=== PATIENT | female | born 1960 | race Caucasian/White ===

== ENCOUNTER 2020-01-06 03:32 | Inpatient (IN) ==
[2020-01-06] MEDS ORDERED: DUONEB (A & A) INH ONE (03:35)
[2020-01-06] MEDS ORDERED: SOLU-MEDROL IV ONE (03:36)
[2020-01-06] MEDS ORDERED: MAGNESIUM SULFATE 1 GM/D5W 1 GM/100 ML IVPB IV ONE (03:38)
--- NOTE | 2020-01-06 03:42 | PROVIDER DOCUMENTATION ---
HPI-Respiratory General - General Chief Complaint: Shortness of Breath Stated Complaint: COPD Time Seen by Provider: 01/06/20 03:35 Source: patient Allergies/Adverse Reactions: Patient Allergies Allergy/AdvReac Type Severity Reaction Status Date / Time No Known Allergies Allergy Verified 01/06/20 03:40 Home Medications: Home Medication List Medication Instructions Recorded Confirmed Last Taken Type Metoprolol/Hydrochlorothiazide 1 each PO BID 08/27/18 01/06/20 Unknown History [Metoprolol-Hctz 50-25 mg Tab] Albuterol [Albuterol Neb] 1 puff ORDERED DIRECTED 01/06/20 01/06/20 Unknown History Gabapentin 400 mg PO TID 01/06/20 01/06/20 Unknown History Levothyroxine [Synthroid] 25 mg PO DAILY 01/06/20 01/06/20 Unknown History Tiotropium [place] [Spiriva 1 puff PO DIRECTED 01/06/20 01/06/20 Unknown History Respimat] - History of Present Illness-Resp Nature of Presenting Problem: Patient is a 59 year old white female with history of severe COPD requiring home oxygen, tobacco abuse (currently smokes 1/4ppd), and HTN who presents by [facility] with worsening SOB and wheezing. EMS reports initial O2 sat of 93% on 2L/NC with wheezing. No treatment given by EMS. Patient denies chest pain, productive cough, fever. Patient states that shortness of breath has worsened over past 3 weeks. Patient smoked a cigarette just prior to arrival. Review of Systems - Adult - REVIEW OF SYSTEMS - ADULT Constitutional: denies: chills, fever Eyes: reports: no symptoms reported Ears, Nose, Mouth & Throat: reports: no symptoms reported Cardiovascular: denies: edema Respiratory: reports: see HPI, shortness of breath, wheezing Gastrointestinal: denies: abdominal pain, nausea, vomiting Genitourinary: reports: no symptoms reported Musculoskeletal: reports: no symptoms reported Integumentary: reports: no symptoms reported Neurological: reports: no symptoms reported Psychiatric: reports: anxiety Endocrine: reports: no symptoms reported Hematologic/Lymphatic: reports: no symptoms reported Allergic/Immunologic: reports: no symptoms reported All Other Systems: Reviewed and Negative Past History - Adult - PAST MEDICAL HISTORY-ADULT Review of Records: reports: Old Records Reviewed, Nursing Assessment Review, Medications Reviewed, Social history reviewed & non-contributory. Major Childhood Illnesses: reports: denies history Cardiovascular: reports: HTN Respiratory: reports: COPD Gastrointestinal: reports: denies history Obstetrical/Gynecological: reports: denies history Genitourinary: reports: denies history Musculoskeletal: reports: denies history Neurological: reports: denies history Endocrine/Immune: reports: denies history Other Conditions: reports: denies history - PRIOR SURGERIES/PROCEDURES Surgical/Procedure History: reports: cholecystectomy - IMMUNIZATION STATUS Childhood Immunizations: See Nurse Assessment Flu Vaccine: See Nurse Assessment - FAMILY HISTORY Family History: reviewed, not pertinent - SOCIAL HISTORY Smoking: less than 1 pack/day Substance Use: denies Alcohol Use Frequency: occasionally Living Situation: family Physical Exam-General - PHYSICAL EXAM-ADULT Initial Vital Signs Reviewed: Yes - CONSTITUTIONAL General Appearance: alert, moderate distress - EYES Eyes: other (clear) - HEAD, EARS, NOSE, MOUTH & THROAT HENMT: normocephalic/atraumatic, moist mucous membranes - NECK Neck: full range of motion, supple - RESPIRATORY Respiratory: no accessory muscle use, decreased breath sounds, wheezing - CARDIOVASCULAR Cardiovascular: tachycardia - GASTROINTESTINAL (ABDOMEN) Abdominal Exam: non tender, soft - LYMPHATIC Lymphatic: no adenopathy - MUSCULOSKELETAL Back Exam: no CVA tenderness Extremity: normal range of motion, non-tender Peripheral Pulses: radial (R): 2+, radial (L): 2+ - SKIN Integumentary: normal turgor, warm/dry - NEUROLOGIC Neurologic: grossly normal - PSYCHIATRIC Psych/Mental Status: anxious Progress - PLAN OF CARE/RESULTS Progress/Plan/Lab Results: Vital Signs - 8 hr 01/06/20 03:32 01/06/20 03:40 01/06/20 04:10 Temperature 98 F Pulse Rate 101 H 101 H Respiratory Rate 28 H 24 Blood Pressure 165/113 O2 Sat by Pulse Oximetry 99 90 L 95 Laboratory Results - last 24 hr 01/06/20 01/06/20 01/06/20 03:35 03:35 03:35 WBC 16.60 H RBC 5.00 Hgb 15.2 Hct 48.3 H MCV 96.6 MCH 30.4 MCHC 31.5 L RDW Std Deviation 12.3 Plt Count 277 MPV 9.8 Immature Gran % (Auto) 0.2 Neut % (Auto) 82.6 H Lymph % (Auto) 8.5 L [place] % (Auto) 8.0 Eos % (Auto) 0.5 Baso % (Auto) 0.2 Immature Gran # (Auto) 0.04 Neut # (Auto) 13.72 H Lymph # (Auto) 1.41 [place] # (Auto) 1.32 H Eos # (Auto) 0.08 Baso # (Auto) 0.03 Specimen Type Sample Site pH pCO2 pO2 HCO3 Base Excess Oxyhemoglobin ABG O2 Sat (Calculated) ABG O2 Saturation ABG Carboxyhemoglobin ABG Methemoglobin Oli Test A-a O2 Difference Total Hemoglobin Lactate Liter Flow Blood Gas Modality FiO2 % Sodium Potassium Chloride Carbon Dioxide Anion Gap BUN Creatinine Estimated GFR/1.73 m2 BUN/Creatinine Ratio Glucose Calculated Osmolality Calcium Total Bilirubin AST ALT Alkaline Phosphatase Troponin T High Sens 26 H Tbb-C-Cgssiryeuwl Pept 338 H Total Protein Albumin Globulin Albumin/Globulin Ratio Plasma Lactate 01/06/20 01/06/20 01/06/20 03:35 03:35 03:48 WBC RBC Hgb Hct MCV MCH MCHC RDW Std Deviation Plt Count MPV Immature Gran % (Auto) Neut % (Auto) Lymph % (Auto) [place] % (Auto) Eos % (Auto) Baso % (Auto) Immature Gran # (Auto) Neut # (Auto) Lymph # (Auto) [place] # (Auto) Eos # (Auto) Baso # (Auto) Specimen Type ARTERIAL Sample Site L BRACHIAL pH 7.28 L pCO2 97 H* pO2 56 L HCO3 34.8 H Base Excess 13.2 H Oxyhemoglobin 86.0 L* ABG O2 Sat (Calculated) 19.5 ABG O2 Saturation 90.1 L ABG Carboxyhemoglobin 3.70 H ABG Methemoglobin 0.9 Oli Test NO A-a O2 Difference 51.0 Total Hemoglobin 16.2 Lactate 0.80 Liter Flow 3.0 Blood Gas Modality [place] FiO2 % 32.0 Sodium 140 Potassium 3.1 L Chloride 89 L Carbon Dioxide 36 H Anion Gap 15 BUN 15 Creatinine 0.7 Estimated GFR/1.73 m2 > 60 BUN/Creatinine Ratio 21 Glucose 116 H Calculated Osmolality 281 Calcium 9.7 Total Bilirubin 1.50 H AST 19 ALT 21 Alkaline Phosphatase 54 Troponin T High Sens Rzo-W-Hshavuwnzsp Pept Total Protein 7.4 Albumin 4.5 Globulin 3.0 Albumin/Globulin Ratio 2.0 Plasma Lactate 0.8 Orders Category Date Time Status Admit - [facility] Routine AdmDCTranf 01/06/20 04:31 Active Activity - Strict Bedrest ORDERED Care 01/06/20 04:30 Active Cardiac Monitoring DIRECTED Care 01/06/20 03:38 Active Core Temperature ORDERED Care 01/06/20 03:43 Active NEWS Score >or=5:Order NEWS Bundle S.O. NOW Care 01/06/20 03:39 Active Neurological Check Q4H Care 01/06/20 04:32 Active Resuscitation Status Routine Care 01/06/20 04:30 Ordered Vital Signs Order Q 4-HR ASSESS Care 01/06/20 04:30 Active Z-Document. for Tele Applied ORDERED Care 01/06/20 04:32 Active Heart Healthy Diet Diet 01/06/20 04:32 Active CHEST-1 VIEW [RAD] Stat Exams 01/06/20 03:44 Taken ABG [RESP] Routine Lab 01/06/20 03:48 Completed BLOOD CULTURE [BLDCUL] Stat Lab 01/06/20 03:43 Ordered CBC WITH ELECTRONIC DIFF [HEME] Stat Lab 01/06/20 03:35 Completed CMP [COMPREHENSIVE METABOLIC PANEL] [CHEM] Stat Lab 01/06/20 03:35 Completed LACTATE, PLASMA [CHEM] Lab 01/06/20 07:00 Uncollected LACTATE, PLASMA [CHEM] Lab 01/06/20 10:00 Uncollected LACTATE, PLASMA [CHEM] Q3H Lab 01/06/20 03:35 Completed TROPONIN T HIGH SENSITIVITY Stat Lab 01/06/20 03:35 Completed bnp [PRO B-NATRIURETIC PEPTIDE] Stat Lab 01/06/20 03:35 Completed Albuterol 2.5MG/Ipratrop 0.5MG [Duoneb (A & A)] Med 01/06/20 03:35 Discontinued 3 ml INH NOW ONE Albuterol 2.5MG/Ipratrop 0.5MG [Duoneb (A & A)] Med 01/06/20 07:30 Active 3 ml INH RTQ4H CefTRIAXONE [Rocephin] 1 gm Med 01/06/20 04:08 Discontinued 0.9% Sodium Chloride Inj [Ns] 50 ml IV NOW Magnesium Sulfate 1 gm/D5w Med 01/06/20 03:38 Discontinued 1 gm in 100 ml IV NOW Methylprednisolone Sod Succ [Solu-Medrol] Med 01/06/20 08:00 Active 125 mg IV Q6HR Methylprednisolone Sod Succ [Solu-Medrol] Med 01/06/20 03:36 Discontinued 125 mg IV STAT ONE Aerosol Treatments Routine Oth 01/06/20 03:35 Active Aerosol Treatments Routine Oth 01/06/20 04:32 Active Aerosol Treatments Stat Oth 01/06/20 03:35 Active Aerosol Treatments Stat Oth 01/06/20 04:32 Active BIPAP Stat Oth 01/06/20 04:06 Active Oxygen Device Stat Oth 01/06/20 03:36 Active Telemetry [OM.EQ] Routine Oth 01/06/20 04:30 Active EKG [EKG] Stat Ther 01/06/20 03:37 Ordered Transfer/Admit Order [TRANSFER] Routine Transfer 01/06/20 04:33 Ordered Result Diagrams: 01/06/20 03:35 01/06/20 03:35 - REASSESSMENT Reassessment #1 Time Reassessed: 04:37 Status: improving Reassessment Comment: currenty on BIPAP - CONSULTS/PCP/HOSPITALIST Notification #1 *Consult/PCP/Hospitalist*: Dr. Bryan, hospitalist at [facility] Time Discussed: 04:25 Reason/Comments: admit to PVC Consult Disposition: Admit Departure - Departure Date of Disposition Decision: 01/06/20 Time of Disposition Decision: 04:38 DIAGNOSIS: COPD exacerbation, Hypercarbia Hypertension Qualifiers: Hypertension type: unspecified Qualified Code(s): I10 - Essential (primary) hypertension Leukocytosis Qualifiers: Leukocytosis type: unspecified Qualified Code(s): D72.829 - Elevated white blood cell count, unspecified Disposition: ADMITTED INPATIENT 09 Certified Medical Emergency: Emergent Condition: Serious Referrals and Follow-Ups: Iesha Musa MD [Primary Care Provider] - - Critical Care Note This patient required my direct & personal management of CC.: Yes Attestation - Physician/ ALTAGRACIA Attestation Patient care was provided by Advanced Practice Provider:: No The physician spent face to face time with patient:: Yes Advanced Practice Provider documentation review:: Supervising physician onsite and consulted in the evaluation and care of this patient. The physician did have a face to face encounter with the patient.
[2020-01-06 03:55] LABS: BASO# 0.03 X1000 (0.0-0.2); BASO% 0.2 % (0.0-0.8); EOS# 0.08 X1000 (0.0-0.7); EOS% 0.5 % (0.0-10.0); HEMATOCRIT 48.3 % (37.0-47.0); HEMOGLOBIN 15.2 g/dL (12.0-16.0); IMM GRAN# 0.04 X1000 (0.0-0.04); IMM GRAN% 0.2 % (0.0-0.5); LYMPH# 1.41 X1000 (1.2-3.4); LYMPH% 8.5 % (20.5-51.1); MCH 30.4 PG (27-31); MCHC 31.5 g/dL (33-37); MCV 96.6 FL (81-99); MONO# 1.32 X1000 (0.11-0.59); MPV 9.8 FL (7.4-10.4); NEUT# 13.72 X1000 (1.4-6.5); NEUT% 82.6 % (42.2-75.2); PLT 277 X1000 (130-400); RDW 12.3 % (11.5-14.5)
[2020-01-06 04:02] LABS: BE 13.2 mmoll (-3.0-3.0); BLOOD TYPE ARTERIAL; HCO3-(ACT) 34.8 mmoll (20.0-26.0); METHB 0.9 % (0.0-1.5); O2(CT) 19.5 mL/dL (15.0-23.0); PO2(98.6) 56 mmHg (60-100); SAMPLE BLOOD; SAO2 90.1 % (95.0-100.0); THB 16.2 g/dL (11.5-17.4); pH(98.6) 7.28 (7.35-7.45)
[2020-01-06 04:05] LABS: ALLEN TEST NO; MODALITY CANNULA; PCO2(98.6) 97 mmHg (35-45)
[2020-01-06] MEDS ORDERED: ROCEPHIN 1 GM in NS 50 ML IV ONE (04:08)
[2020-01-06 04:10] LABS: ESTIMATED GFR > 60
[2020-01-06 04:15] LABS: AGAP 15; ALBUMIN 4.5 g/dL (3.5-5.0); ALKALINE PHOSPHATASE 54 U/L (32-104); BUN 15 mg/dL (8-22); CALCIUM 9.7 mg/dL (8.8-10.2); CHLORIDE 89 mmol/L (98-107); COSMO 281; CREATININE 0.7 mg/dL (0.5-0.9); GLUCOSE 116 mg/dL (70-104); GOT 19 U/L (10-30); GPT 21 U/L (10-36); POTASSIUM 3.1 mmol/L (3.5-5.1); SODIUM 140 mmol/L (136-145); TCO2 36 mmol/L (25-35); TOTAL PROTEIN 7.4 g/dL (6.3-8.3)
--- NOTE | 2020-01-06 04:45 | EKG Report ---
Test Performed on : 01/06/2020 02:41:00 AM Test Reason : pain Blood Pressure : / mmHG Vent. Rate : 107 BPM Atrial Rate : 107 BPM P-R Int : 160 ms QRS Dur : 084 ms QT Int : 364 ms P-R-T Axes : 086 088 047 degrees QTc Int : 485 ms Sinus tachycardia. with fusion complexes Biatrial enlargement T wave abnormality, consider inferior ischemia Abnormal ECG When compared with ECG of 09-MAY-2017 10:11, fusion complexes are now present T wave inversion now evident in Inferior leads Nonspecific T wave abnormality now evident in Anterior leads T wave inversion no longer evident in Lateral leads QT has lengthened Unconfirmed Result
[2020-01-06 05:29] LABS: BLOOD TYPE ARTERIAL; SAMPLE BLOOD
[2020-01-06 05:34] LABS: PO2(98.6) 64 mmHg (60-100); pH(98.6) 7.33 (7.35-7.45)
[2020-01-06 05:35] LABS: BE 13.6 mmoll (-3.0-3.0); HCO3-(ACT) 35.3 mmoll (20.0-26.0); METHB 0.8 % (0.0-1.5); SAO2 94.4 % (95.0-100.0); THB 15.5 g/dL (11.5-17.4)
[2020-01-06 05:36] LABS: ALLEN TEST NO; MODALITY BI PAP; O2(CT) 19.6 mL/dL (15.0-23.0); PCO2(98.6) 84 mmHg (35-45)
[2020-01-06 05:37] LABS: O2HB 89.9 % (95.0-99.0)
[2020-01-06] MEDS ORDERED: DUONEB (A & A) INH PRN (06:10)
[2020-01-06] MEDS: LEVAQUIN 750 MG/D5W 750 MG/150 ML IVPB IV SCH (06:25)
--- NOTE | 2020-01-06 07:09 | Diag Imaging Result Doc PS360 ---
EXAM: CHEST-1 VIEW 01/06/2020 HISTORY: sob TECHNIQUE: AP portable at 0307 COMMENT: There is minimally increased opacity in the area of the lingula compared to 08/27/2018. Otherwise the appearance of the chest has not changed significantly. IMPRESSION: Questionable lingular pneumonia. Electronically signed by Corey Sosa 01/06/2020 7:07 AM
[2020-01-06] MEDS ORDERED: DUONEB (A & A) ONE ×2 (07:13)
[2020-01-06] MEDS: DUONEB (A & A) INH SCH ×5 (07:23→23:25)
[2020-01-06] MEDS ORDERED: SOLU-MEDROL ONE ×2 (07:30)
[2020-01-06] MEDS ORDERED: SOLU-MEDROL IV SCH (08:00)
[2020-01-06] MEDS ORDERED: ZOFRAN IV PRN (09:23)
[2020-01-06] MEDS ORDERED: NICODERM PATCH ONE ×2 (09:38)
[2020-01-06] MEDS ORDERED: NS 1,000 ML ONE ×2 (09:38)
[2020-01-06] MEDS: NS 1,000 ML IV SCH ×2 (09:47→23:00)
[2020-01-06] MEDS: NICODERM PATCH TD SCH (09:48)
[2020-01-06] MEDS: SYNTHROID PO SCH (11:42)
[2020-01-06] MEDS ORDERED: KLOR-CON PO ONE (11:46)
--- NOTE | 2020-01-06 12:06 | HISTORY AND PHYSICAL ---
CHIEF COMPLAINT: Shortness of breath. HISTORY OF PRESENT ILLNESS: This is a 59-year-old female with a history of COPD, tobacco abuse, and hypertension. She presented to the emergency room via EMS after being called for shortness of breath. The patient stated that she has had increasing symptoms over the last 3 to 4 weeks. The last week, she has sat upright tried to breathe. This is despite using her home albuterol nebulizers, Spiriva, and during this time, she has continued to smoke about a pack a day. She denied any fevers or chills, a productive cough. She did state that she smoked a cigarette as she was awaiting EMS arrival at her house. PAST MEDICAL HISTORY: 1. Chronic obstructive pulmonary disease. 2. Continued tobacco use. 3. Hypertension. 4. Hypothyroid. PAST SURGICAL HISTORY: Cholecystectomy. SOCIAL HISTORY: She lives with her . She denies illicit drug use or alcohol use. She does smoke a pack a day. ALLERGIES: No known drug allergies. HOME MEDICATIONS: 1. Albuterol nebulizers as directed. 2. Levothyroxine 25 mcg p.o. daily. 3. Metoprolol/hydrochlorothiazide 50/25 p.o. b.i.d. 4. Levothyroxine 25 mcg p.o. daily. 5. Gabapentin 400 mg p.o. t.i.d. 6. Spiriva 1 puff as directed. REVIEW OF SYSTEMS: Discussed with the patient with pertinent positives stated in the HPI. She denied any syncope, dizziness, chest pain, palpitations, a productive cough, any fevers or chills, any night sweats, recent weight loss or weight gain, any nausea, vomiting, diarrhea, constipation, black or bloody vomitus or stools, hematuria, dysuria, frequency, urgency. PHYSICAL EXAMINATION: GENERAL: This is a 59-year-old female who is sitting up on the stretcher in the emergency room with BiPAP in use. VITAL SIGNS: Blood pressure is 139/96, with a heart rate of 98, respirations are 20 to 23, temperature is 97.9 degrees, with O2 saturations that are 94 to 97 percent on BiPAP with FiO2 of 30%, 15/6. EYES: Pupils are equal, round, react to light. EOMs are intact. Sclerae are anicteric. HENT: Head is normocephalic, atraumatic. Mucous membranes are moist. NECK: Supple, with trachea midline. No JVD. CARDIOVASCULAR: Regular rate and rhythm. She is tachycardic. S1 and S2 are appreciated. No murmur. Calves are nontender. Bilateral peripheral pulses are palpable x4 extremities. PULMONARY: Breath sounds are diminished throughout. She does have some crackles in the posterior base of her right lung with expiratory wheezes scattered throughout. Chest rises and falls symmetrically with respiration. GASTROINTESTINAL: Abdomen is soft, nontender, nondistended, with bowel sounds in all 4 quadrants. NEUROLOGIC: She is alert and oriented x3. SKIN: Warm and dry. LABS: WBC is 16, with hemoglobin of 15.2, hematocrit 48.3, platelets 277,000. Sodium 140, potassium 3.1, BUN 15, creatinine 0.7, with a glucose of 116. ABGs, pH is 7.33, with a pCO2 of 84, a PO2 of 64, and bicarb of 35.3. This is on BiPAP 30 with 15/6. Chest x- ray revealed questionable lingular pneumonia. ASSESSMENT AND PLAN: 1. Lingular pneumonia. 2. Chronic obstructive pulmonary disease acute exacerbation. 3. Acute hypercarbic, hypoxemic respiratory failure. 4. Leukocytosis. 5. Hypokalemia. 6. Hypothyroid. 7. Hypertension. PLAN: transfer to [facility] ICU. telemetry. supplemental oxygen per BiPAP with bronchodilators, steroids. Antibiotic coverage of Levaquin. Gentle hydration. continue levothyroxine. I did discuss smoking cessation with the patient as well as her . Nicotine patch has been ordered. supplement potassium and trend labs daily. Replete as appropriate. For DVT prophylaxis, Lovenox, and GI prophylaxis, Prilosec. The patient was examined. The plan was discussed with Dr. Barbosa. Further treatments pending hospital course. Dictated by MARIPOSA Mccord for Edgardo Barbosa MD cc: MARIPOSA Mccord MD [facility]
[2020-01-06] MEDS: NEURONTIN PO SCH ×2 (13:02→20:01)
[2020-01-06] MEDS: SOLU-MEDROL IV SCH ×2 (13:02→19:37)
[2020-01-06 14:20] LABS: URINE SOURCE CATH
[2020-01-06 14:23] LABS: BILIRUBIN URINE NEGATIVE (NEGATIVE); BLOOD URINE MODERATE (NEGATIVE); COLOR YELLOW; GLUCOSE URINE NEGATIVE (NEGATIVE); KETONE URINE 20 mg/dL (NEGATIVE); LEUKOCYTES URINE NEGATIVE (NEGATIVE); NITRITE URINE NEGATIVE (NEGATIVE); PROTEIN URINE 50 mg/dL (NEGATIVE); SP GRAVITY URINE 1.026; TURBIDITY URINE CLEAR (CLEAR); UROBILINOGEN URINE NORMAL (NORMAL)
[2020-01-06 14:27] LABS: UR EPITHELIAL CELLS <10 /HPF (<10); URINE BACTERIA NEGATIVE /HPF; URINE RBC 20-40 /HPF (<10); URINE WBC <10 /HPF (<10)
--- NOTE | 2020-01-06 15:01 | PULMONOLOGY CONSULTATION ---
DATE: 01/06/2020 REQUESTING PROVIDER: Dr. Paco Bryan. REASON FOR CONSULTATION: Acute hypercapnic respiratory failure. HISTORY OF PRESENT ILLNESS: This is a 59-year-old, female with a medical history of COPD, on home oxygen, ongoing tobacco use, hypertension, and hypothyroidism, who presented to the ER early this morning with worsening shortness of breath and wheezing for 3 weeks. Initial workup in the ER revealed significant hypercarbia with mild metabolic alkalosis. She was put on BiPAP soon after she arrived to the ER. Followup ABG shows some improvement with pCO2 decreased from 97 to 84. The patient also has leukocytosis. Chest x-ray showed questionable lingular pneumonia, so she was on Levaquin and IV Solu-Medrol. The patient currently is lying in bed with no acute distress noted. She is still on BiPAP with FiO2 of 30% and pressure of 15/6. She is awake and alert. She states she is feeling a little bit better. She reports orthopnea, insomnia, interrupted sleep, witnessed snoring, shortness of breath, and wheezing, but denies fever, chill, significant cough, chest pain, palpitation, bowel habit change, urination discomfort, pedal edema, paroxysmal nocturnal dyspnea, recent weight change. PAST MEDICAL HISTORY: 1. COPD, on home oxygen, mainly used oxygen at night for over 10 years. 2. Ongoing tobacco use. Per H and P, the patient apparently smoked a cigarette as she was awaiting EMS arrival at her house. 3. Hypertension. 4. Hypothyroidism. PAST SURGICAL HISTORY: Cholecystectomy. SOCIAL HISTORY: The patient lives at home with her family. She has been smoking 1 pack per day since the age of 16. Her father is a heavy smoker and used to smoke around the house. She has history of heavy drinking, and quit many years ago. She has a history of marijuana use, and quit many years ago. She denies any history of illicit drug use. FAMILY HISTORY: Father had COPD. Mother had lung cancer. Grandparents had heart disease, diabetes, and cancer. ALLERGIES: No known drug allergies. REVIEW OF SYSTEMS: A 10-point review of systems was conducted, and the pertinent is listed within the HPI, otherwise noncontributory. PHYSICAL EXAMINATION: Vital Signs: Temperature 97.9, blood pressure 130/88, pulse 87, respiratory rate 26, oxygen saturation 97% on the BiPAP at 30%, 15/6. General: Chronically ill- appearing. Lying in bed with BiPAP mask on. No acute distress noted. HEENT: Atraumatic, normocephalic. Pupils equal, round, reactive to light. Mucosa is not elevated as the patient is wearing a BiPAP mask, but the patient reported dryness at this time. Respiratory: Mild tachypnea. No increased work of breathing noted. Auscultation revealed diminished breathing sounds globally with some inspiratory crackles and prolonged expiratory phase. No wheezing noted at this time. Cardiovascular: Regular rate and rhythm with S1 and S2 appreciated. Gastrointestinal: Soft, nontender, nondistended. Normoactive bowel sounds in all 4 quadrants. Extremities: No pedal edema. No cyanosis. No clubbing. Dorsalis pedis 2+ bilaterally. Neurologic: Alert and oriented x3. Speech fluent. Follows commands. LABORATORY DATA: White blood cells 16.60, hemoglobin 15.2, hematocrit 48.3, platelet 277,000. Sodium 140, potassium 3.1, chloride 89, carbon dioxide 36, BUN 15, creatinine 0.7, glucose 116. ProBNP 338. ABG: PH 7.33, pCO2 of 84, PO2 of 64, HC03 of 35.3, base excess 13.6, oxyhemoglobin 89.9 on the BiPAP at FiO2 of 30% and pressure 15/6. IMAGING DATA: See HPI. ASSESSMENT: This is a 59-year-old, female with a medical history of chronic obstructive pulmonary disease, on home oxygen, ongoing tobacco use, hypertension, and hypothyroidism. She has been admitted to [facility] this morning with lingular pneumonia, chronic obstructive pulmonary disease exacerbation, and hypercarbia. 1. Acute on chronic hypoxemic respiratory failure. 2. Acute hypercapnic respiratory failure. 3. COPD exacerbation. 4. Possible lingular pneumonia. 5. Ongoing tobacco use. PLAN: 1. Continue BiPAP at this time. We will follow up ABG tomorrow morning. Once the patient's pCO2 gets out of the critical range, we will switch the patient to BiPAP at bedtime and as needed. 2. Continue supplemental oxygen. 3. Antibiotics. Levaquin has been ordered. 4. IV Solu-Medrol 60 mg every 6 hours scheduled has been ordered. 5. GI prophylaxis with Prilosec, and DVT prophylaxis with Lovenox initiated. 6. Follow up ABG, CBC, BMP, and chest x-ray tomorrow morning. 7. Smoking cessation education provided. The patient stated she will quit smoking after discharge. 8. Recommend outpatient sleep study after discharge. 9. Further recommendations pending hospital course. Thank you for the courtesy of this consult. Total evaluation time in minutes: 34. Dictated by MARIPOSA Garcia for Luci Burk MD cc: MARIPOSA Garcia MD [facility]
--- NOTE | 2020-01-06 20:48 | HISTORY AND PHYSICAL ---
ADDENDUM: Patient presented to the hospital with increased cough, congestion, increased work of breathing. Diagnosed with a COPD exacerbation and hypercapnic respiratory failure. She was placed on BiPAP. We will continue her on such, transfer her to [facility]. She did have a low potassium which was replaced and leukocytosis. We will follow. cc: Edgardo Barbosa MD
[2020-01-07] MEDS: SOLU-MEDROL IV SCH ×3 (03:00→20:32)
[2020-01-07] MEDS: DUONEB (A & A) INH SCH ×6 (03:28→22:58)
[2020-01-07 04:28] LABS: ALLEN TEST YES; BE 13.7 mmoll (-3.0-3.0); BLOOD TYPE ARTERIAL; HCO3-(ACT) 35.4 mmoll (20.0-26.0); METHB 0.6 % (0.0-1.5); O2(CT) 16.2 mL/dL (15.0-23.0); PO2(98.6) 52 mmHg (60-100); SAMPLE BLOOD; SAO2 91.5 % (95.0-100.0); THB 12.9 g/dL (11.5-17.4); pH(98.6) 7.39 (7.35-7.45)
[2020-01-07 04:29] LABS: MODALITY BI PAP
[2020-01-07 04:30] LABS: O2HB 89.3 % (95.0-99.0); PCO2(98.6) 69 mmHg (35-45)
[2020-01-07 04:58] LABS: HEMATOCRIT 39.7 % (37.0-47.0); HEMOGLOBIN 12.7 g/dL (12.0-16.0); MCH 30.8 PG (27-31); MCV 96.1 FL (81-99); MPV 10.5 FL (7.4-10.4); RBC 4.13 XMIL (4.2-5.4); RDW 12.1 % (11.5-14.5); WBC 9.7 X1000 (4.8-10.8)
[2020-01-07 05:20] LABS: AGAP 10; BUN 19 mg/dL (8-22); CALCIUM 9.2 mg/dL (8.8-10.2); CHLORIDE 98 mmol/L (98-107); COSMO 291; CREATININE 0.7 mg/dL (0.5-0.9); ESTIMATED GFR > 60; GLUCOSE 138 mg/dL (70-104); POTASSIUM 3.7 mmol/L (3.5-5.1); SODIUM 144 mmol/L (136-145); TCO2 36 mmol/L (25-35)
--- NOTE | 2020-01-07 06:26 | PROGRESS NOTE ---
DATE: 01/07/2020 SUBJECTIVE: The patient reports breathing much better in comparing with admission. According to nursing staff, she has been requiring BiPAP at night. Currently, she is requiring 4 L of oxygen by nasal cannula. She is breathing okay. No fever or chills reported. OBJECTIVE: Vital Signs: Temperature 98 degrees, heart rate 72, respiratory rate 15, blood pressure 124/75 and O2 saturation 95% on BiPAP at FiO2 40%. General: This is a 59-year-old all female lying in bed in no acute distress. Cardiovascular: S1, S2 heard. No murmurs, gallops, or rubs. Regular rate and rhythm. Respiratory: Decreased breath sounds globally with some minimal wheezing noted in both pulmonary bases. The patient is not using any accessory muscles or having work of breathing. Abdomen: Soft. Non tender to palpation. Bowel sounds present. No organomegaly. Extremities: No clubbing, cyanosis, or edema. Peripheral pulses present in both legs. Neurological: Patient is alert and oriented x3. Moves all 4 extremities. LABORATORY DATA: White cell count 9.17, hemoglobin 12.7, hematocrit 39.7 degrees, and platelets 195,000 with ABG that shows pH 7.39, with pCO2 69, and PO2 52. BMP unremarkable. ASSESSMENT AND PLAN: 1. Acute hypercarbic and hypoxemic respiratory failure secondary to chronic obstructive pulmonary disease exacerbation. 2. Lingular pneumonia. 3. Hypertension. 4. Hypothyroidism. PLAN: Patient has been admitted to the hospital from [facility] because of severe COPD exacerbation with hypercapnia. CO2 levels today are definitely much better. At admission, pH was 7.28 with pCO2 97, and today the pH is normal at 7.39 with pCO2 of 69. Of course, the CO2 level is still high. We have consulted Pulmonary. We will continue monitoring this patient closely. The patient is on breathing treatments with DuoNeb every 4 hours as scheduled. For this lingular pneumonia, patient is receiving levofloxacin. We will continue with the same medications. Considering her long-standing history of smoking to rule out any malignancy, I prefer to go ahead and order a CT of the chest with contrast. We will see what it shows. For hypertension, blood pressure is under control. We will continue with same medications. For hypothyroidism home, we are going to check TSH. We will continue with same doses of Synthroid. DISPOSITION: At this point, we are going to keep this patient in intensive care unit considering her still high oxygen needs. cc: Harrison Boles MD [facility]
[2020-01-07] MEDS: SYNTHROID PO SCH (06:31)
[2020-01-07] MEDS: PRILOSEC PO SCH (06:31)
[2020-01-07] MEDS: LEVAQUIN 750 MG/D5W 750 MG/150 ML IVPB IV SCH (06:31)
--- NOTE | 2020-01-07 07:43 | Diag Imaging Result Doc PS360 ---
EXAM: CHEST-PORTABLE HISTORY: hypoxemic resp failure, pna, copd TECHNIQUE: Two views COMPARISON: 01/06/2020 FINDINGS: The lungs are hyperexpanded. The heart is not enlarged. The vessels are not distended. There are no infiltrates. No effusion identified. There is a right lower lobe granuloma. IMPRESSION: Emphysema Electronically signed by Bob Benson 01/07/2020 7:41 AM
[2020-01-07] MEDS: NEURONTIN PO SCH ×3 (08:03→20:33)
[2020-01-07] MEDS: LOVENOX SUBQ SCH (08:03)
[2020-01-07] MEDS: NICODERM PATCH TD SCH (08:03)
[2020-01-07] MEDS: TESSALON PO PRN ×2 (08:03→16:18)
[2020-01-07] MEDS: HYDROCHLOROTHIAZIDE PO SCH ×2 (09:23→20:32)
[2020-01-07] MEDS: NS 1,000 ML IV SCH ×2 (09:23→16:46)
[2020-01-07] MEDS: LOPRESSOR PO SCH ×2 (09:23→20:33)
--- NOTE | 2020-01-07 19:09 | PROVIDER PROGRESS NOTE ---
Progress Note Dr. Burk Progress Note/Pulmonary and or critical care Subjective: The patient is lying in bed on NC 6L with SaO2 95%. She states she is feeling a lot better. No family at the bedside. Input was appreciated from Dr. Mercado and other teams on the case. Objective: Vital Signs: T 97.8 (no fever in last 24 hours), [place] 113, RR 26, BP 171/123 and SaO2 92% on NC 6L. I/O: +1315 ml. Physical Examination: General: Lying in bed. No acute distress noted. HEENT: Normocephalic. Trachea midline. Mucosa pink and moist. PERRL. Chest: Mild tachypnea. No increased work of breathing or accessory muscle using noted. Symmetrical excursion. Good air entry with expiratory wheezing and prolonged expiratory phase bilaterally. CVS: S1 and S2 appreciated. Abdomen: Soft. Non-distended. Non-tender. Normoactive bowel sounds in all 4 quadrants. Extremities: No edema. No cyanosis. No clubbing. Neuro: A/O x3. Speech fluent. Follow commands. Labs and Radiology: Laboratory Results 01/07/20 01/07/20 01/07/20 04:00 04:35 04:35 WBC 9.70 RBC 4.13 L Hgb 12.7 D Hct 39.7 MCV 96.1 MCH 30.8 MCHC 32.0 L RDW Std Deviation 12.1 Plt Count 195 MPV 10.5 H Specimen Type ARTERIAL Sample Site R RADIAL pH 7.39 pCO2 69 H* pO2 52 L HCO3 35.4 H Base Excess 13.7 H Oxyhemoglobin 89.3 L* ABG O2 Sat (Calculated) 16.2 ABG O2 Saturation 91.5 L ABG Carboxyhemoglobin 1.80 ABG Methemoglobin 0.6 Oli Test YES A-a O2 Difference 76.0 Total Hemoglobin 12.9 Lactate 0.60 Blood Gas Modality BI PAP Vent Mode BIPAP FiO2 % 30.0 Inspiratory BiPAP 16.0 Expiratory BiPAP 8.0 Sodium 144 Potassium 3.7 D Chloride 98 Carbon Dioxide 36 H Anion Gap 10 BUN 19 Creatinine 0.7 Estimated GFR/1.73 m2 > 60 BUN/Creatinine Ratio 27 Glucose 138 H Calculated Osmolality 291 Calcium 9.2 Assessment: Acute on chronic hypoxemic respiratory failure. Acute, likely on chronic hypercapnic respiratory failure. Respiratory acidosis is chronic and compensated with metabolic alkalosis today. COPD exacerbation. Possible lingular pneumonia. CXR today shows emphysema. Ongoing tobacco use. Possible ALVERTO with insomnia, interrupted sleep and witnessed snoring. Plan: Supplemental oxygen as needed. BiPAP at bedtime and as needed. We titrated supplemental oxygen and BiPAP setting to patients needs per clinical protocols. We will keep monitoring patients response closely. Antibiotic Levaquin. Day 2. IV Solu-Medrol. Tapering down. GI and DVT prophylaxis. Smoking cessation education Recommend outpatient sleep study. Evaluation time in minutes: 32 minutes
[2020-01-07] MEDS: DESYREL PO SCH (20:33)
[2020-01-08] MEDS: NS 1,000 ML IV SCH (02:15)
[2020-01-08] MEDS: DUONEB (A & A) INH SCH ×6 (03:44→23:07)
[2020-01-08] MEDS: SOLU-MEDROL IV SCH ×3 (04:20→21:02)
[2020-01-08 04:33] LABS: ALLEN TEST YES; BE 17.7 mmoll (-3.0-3.0); BLOOD TYPE ARTERIAL; HCO3-(ACT) 38.6 mmoll (20.0-26.0); PO2(98.6) 66 mmHg (60-100); SAMPLE BLOOD; pH(98.6) 7.42 (7.35-7.45)
[2020-01-08 04:56] LABS: MODALITY BI PAP; PCO2(98.6) 71 mmHg (35-45)
[2020-01-08] MEDS: LEVAQUIN 750 MG/D5W 750 MG/150 ML IVPB IV SCH (05:21)
[2020-01-08] MEDS: PRILOSEC PO SCH (06:00)
[2020-01-08] MEDS: SYNTHROID PO SCH (06:00)
[2020-01-08 06:09] LABS: HEMATOCRIT 39.6 % (37.0-47.0); HEMOGLOBIN 12.1 g/dL (12.0-16.0); IMM GRAN# 0.02 X1000 (0.0-0.04); IMM GRAN% 0.2 % (0.0-0.5); LYMPH# 0.54 X1000 (1.2-3.4); LYMPH% 4.8 % (20.5-51.1); MCHC 30.6 g/dL (33-37); MONO# 0.49 X1000 (0.11-0.59); MONO% 4.3 % (1.7-9.3); MPV 10.5 FL (7.4-10.4); NEUT# 10.22 X1000 (1.4-6.5); NEUT% 90.7 % (42.2-75.2); PLT 209 X1000 (130-400); RBC 4.04 XMIL (4.2-5.4); RDW 12.1 % (11.5-14.5); WBC 11.27 X1000 (4.8-10.8)
[2020-01-08 06:33] LABS: AGAP 10; BUN 20 mg/dL (8-22); CALCIUM 8.9 mg/dL (8.8-10.2); CHLORIDE 99 mmol/L (98-107); COSMO 296; CREATININE 0.6 mg/dL (0.5-0.9); ESTIMATED GFR > 60; GLUCOSE 119 mg/dL (70-104); POTASSIUM 3.9 mmol/L (3.5-5.1); SODIUM 147 mmol/L (136-145); TCO2 38 mmol/L (25-35)
[2020-01-08] MEDS: TESSALON PO PRN ×3 (06:49→21:05)
[2020-01-08 07:31] LABS: EOS 2 % (1-10); LYMPHS 12 % (21-51); MONO 2 % (1-9); SEGS 82 % (42-75)
--- NOTE | 2020-01-08 08:21 | PROGRESS NOTE ---
DATE: 01/08/2020 SUBJECTIVE: Patient reports breathing better. Upon my examination, she still looks tachypneic. No other issues noted as per nursing staff overnight. Blood pressure has been a little bit elevated in the range of 160s and diastolic in the range of 110s and 111. OBJECTIVE: Vital Signs: Temperature 97 degrees, heart rate 91, respiratory rate 28, blood pressure 157/103, O2 saturation 92% on 6 L nasal cannula. General: This is a chronically ill- looking, 59-year-old female, lying in bed, in no acute distress. Cardiovascular: S1 and S2 heard. No murmurs, gallops, or rubs. Regular rate and rhythm. Respiratory: Decreased breath sounds globally with minimal wheezing noted in both pulmonary bases. Patient not using any accessory muscles or having work of breathing. Abdomen: Soft, nontender to palpation. Bowel sounds present. No organomegaly. Extremities: No clubbing. No cyanosis or edema. Peripheral pulses present in both legs. Neurological: Patient alert oriented x3. Moves 4 extremities. LABORATORY DATA: White cell count 11.27, hemoglobin 12.1, hematocrit 39.6, platelets 209,000. ABG shows pH 7.42 with pCO2 71, PO2 66, that was taken on BiPAP at FiO2 of 45%. BMP remarkable for sodium 147, glucose 119. ASSESSMENT: 1. Acute hypercarbic and hypoxemic respiratory failure secondary to chronic obstructive pulmonary disease exacerbation. 2. Lingular pneumonia. 3. Hypertension. 4. Hypothyroidism. PLAN: At this point, patient is improving although the CO2 level is still high and patient persists to be tachypneic. In that regard, what I am planning to do is to keep this patient in the intensive care unit until we do see that she requires less oxygen supplementation and she looks less tachypneic. Pulmonary has been consulted. Considering her long-standing history of smoking and to rule out malignancy, CT of the chest has been ordered. We will see what it shows. For lingular pneumonia, we will continue with current antibiotic management. For blood pressure, as mentioned before, we will adjust the doses of blood pressure medication. For hypothyroidism, we will continue home dose of Synthroid. DISPOSITION: We will keep this patient in the intensive care unit for today for better monitoring. cc: Harrison Boles MD
[2020-01-08] MEDS: HYDROCHLOROTHIAZIDE PO SCH ×2 (08:39→21:02)
[2020-01-08] MEDS: NICODERM PATCH TD SCH (08:39)
[2020-01-08] MEDS: LOPRESSOR PO SCH ×2 (08:39→21:02)
[2020-01-08] MEDS: NEURONTIN PO SCH ×3 (08:39→21:02)
[2020-01-08] MEDS: LOVENOX SUBQ SCH (08:39)
--- NOTE | 2020-01-08 12:40 | Diag Imaging Result Doc PS360 ---
EXAM: CT THORAX W/CONTRAST INDICATION: pneumonia, r/o malignancy TECHNIQUE: This exam was performed using automated exposure control, adjustment of mA or kV according to patient size, and/or use of iterative reconstruction technique. COMPARISON: None. FINDINGS: There is advanced pulmonary emphysema with an apical predominance. There is a calcified granuloma in the right lower lobe. In the right upper lobe medially near the mediastinum, there is a 1.2 cm noncalcified nodule that can be seen on image 38 of series 3. It is nonspecific. Consider evaluation with PET scan or at least an initial follow-up CT in 3 months based on Fleischner Society criteria. Due to its proximity to the SVC, it is probably not amenable to CT-guided biopsy at this time. There is also a 5.7 mm noncalcified nodule in the left upper lobe on image 44 of series 3. There is a pleural-based 6.5 mm noncalcified nodule at the superior aspect of the left lower lobe on image 44 of series 3. There are no airspace consolidation. There is no pleural fluid collection and no pneumothorax. There are calcified right hilar lymph nodes indicating prior granulomatous disease. There are coronary artery calcifications. There is no cardiomegaly. There is no evidence of significant lymphadenopathy. Limited views of the upper abdomen reveals an incidental splenic cyst. There is no evidence of acute osseous abnormality. IMPRESSION: 1.Advanced pulmonary emphysema. 2.Indeterminate dominant nodule in the medial right upper lobe. Please see above discussion. 3.A couple of subcentimeter noncalcified nodules in the left lung as described above. 4.No evidence of airspace consolidation or other definite acute chest pathology by CT. Electronically signed by Jesús Tee 01/08/2020 12:37 PM
--- NOTE | 2020-01-08 18:50 | PROVIDER PROGRESS NOTE ---
Progress Note Dr. Burk Progress Note/Pulmonary and or critical care Subjective: The patient is lying in bed on NC 6L. She states she is feeling better. She still has frequent tachypnea. She does have SOB with light activities. No family at the bedside. Input was appreciated from Dr. Mercado and other teams on the case. Objective: Vital Signs: T 98.8 (no fever in last 24 hours), [place] 113, RR 24, BP 150/103 and SaO2 96% on NC 6L. I/O: +1430 ml. Physical Examination: General: Lying in bed. No acute distress noted. HEENT: Normocephalic. Trachea midline. Mucosa pink and moist. PERRL. Chest: Mild tachypnea. No increased work of breathing or accessory muscle using noted. Symmetrical excursion. Good air entry with improving expiratory wheezing and prolonged expiratory phase bilaterally. CVS: S1 and S2 appreciated. Abdomen: Soft. Non-distended. Non-tender. Normoactive bowel sounds in all 4 quadrants. Extremities: No edema. No cyanosis. No clubbing. Neuro: A/O x3. Speech fluent. Follow commands. Labs and Radiology: Laboratory Results 01/08/20 01/08/20 01/08/20 04:22 05:45 05:45 WBC 11.27 H RBC 4.04 L Hgb 12.1 Hct 39.6 MCV 98.0 MCH 30.0 MCHC 30.6 L RDW Std Deviation 12.1 Plt Count 209 MPV 10.5 H Immature Gran % (Auto) 0.2 Neut % (Auto) 90.7 H Lymph % (Auto) 4.8 L [place] % (Auto) 4.3 Eos % (Auto) 0.0 Baso % (Auto) 0.0 Immature Gran # (Auto) 0.02 Neut # (Auto) 10.22 H Lymph # (Auto) 0.54 L [place] # (Auto) 0.49 Eos # (Auto) 0.00 Baso # (Auto) 0.00 Segmented Neutrophils 82 H Lymphocytes 12 L Monocytes 2 Eosinophils 2 Unidentified Cells 2.0 Specimen Type ARTERIAL Sample Site R RADIAL pH 7.42 pCO2 71 H* pO2 66 HCO3 38.6 H Base Excess 17.7 H Oli Test YES A-a O2 Difference 166.0 Lactate 0.90 Blood Gas Modality BI PAP FiO2 % 45.0 Inspiratory BiPAP 16.0 Expiratory BiPAP 8.0 Sodium 147 H Potassium 3.9 Chloride 99 Carbon Dioxide 38 H Anion Gap 10 BUN 20 Creatinine 0.6 Estimated GFR/1.73 m2 > 60 BUN/Creatinine Ratio 33 Glucose 119 H Calculated Osmolality 296 Calcium 8.9 Assessment: Acute on chronic hypoxemic respiratory failure. Acute, likely on chronic hypercapnic respiratory failure. Respiratory acidosis is chronic and compensated with metabolic alkalosis today. COPD exacerbation. Possible lingular pneumonia. CT thorax with contrast this morning shows advanced pulmonary emphysema, indeterminate dominant nodule in the medial right upper lobe, a couple of subcentimeter noncalcified nodules in the left lung, but no evidence of airspace consolidation or other definite acute chest pathology. Ongoing tobacco use. Possible ALVERTO with insomnia, interrupted sleep and witnessed snoring. Plan: Supplemental oxygen as needed. BiPAP at bedtime and as needed. We titrated supplemental oxygen and BiPAP setting to patients needs per clinical protocols. We will keep monitoring patients response closely. Antibiotic Levaquin. Day 3. IV Solu-Medrol. Tapering down. GI and DVT prophylaxis. Smoking cessation education Recommend outpatient sleep study. Recommend outpatient CT follow up secondary to pulmonary nodules. Evaluation time in minutes: 33 minutes
[2020-01-08] MEDS: DESYREL PO SCH (21:02)
[2020-01-09] MEDS: DUONEB (A & A) INH SCH ×6 (03:40→23:04)
[2020-01-09] MEDS: TESSALON PO PRN ×2 (04:12→08:16)
[2020-01-09 05:32] LABS: ALLEN TEST YES; BE 16.4 mmoll (-3.0-3.0); BLOOD TYPE ARTERIAL; HCO3-(ACT) 37.5 mmoll (20.0-26.0); O2(CT) 19.3 mL/dL (15.0-23.0); O2HB 91.6 % (95.0-99.0); PO2(98.6) 60 mmHg (60-100); SAMPLE BLOOD; SAO2 93.6 % (95.0-100.0); pH(98.6) 7.38 (7.35-7.45)
[2020-01-09 05:34] LABS: MODALITY CANNULA; PCO2(98.6) 78 mmHg (35-45)
[2020-01-09] MEDS: LEVAQUIN 750 MG/D5W 750 MG/150 ML IVPB IV SCH (05:42)
[2020-01-09] MEDS: SOLU-MEDROL IV SCH ×3 (05:42→21:19)
[2020-01-09 06:04] LABS: BASO# 0.01 X1000 (0.0-0.2); BASO% 0.1 % (0.0-0.8); EOS# 0.04 X1000 (0.0-0.7); EOS% 0.4 % (0.0-10.0); HEMATOCRIT 45.6 % (37.0-47.0); HEMOGLOBIN 13.9 g/dL (12.0-16.0); IMM GRAN# 0.03 X1000 (0.0-0.04); IMM GRAN% 0.3 % (0.0-0.5); LYMPH# 0.61 X1000 (1.2-3.4); LYMPH% 5.6 % (20.5-51.1); MCH 29.8 PG (27-31); MCHC 30.5 g/dL (33-37); MCV 97.9 FL (81-99); MONO# 0.27 X1000 (0.11-0.59); MONO% 2.5 % (1.7-9.3); MPV 10.8 FL (7.4-10.4); NEUT# 9.89 X1000 (1.4-6.5); NEUT% 91.1 % (42.2-75.2); PLT 269 X1000 (130-400); RBC 4.66 XMIL (4.2-5.4); RDW 12.2 % (11.5-14.5); WBC 10.85 X1000 (4.8-10.8)
[2020-01-09] MEDS: SYNTHROID PO SCH (06:09)
[2020-01-09] MEDS: PRILOSEC PO SCH (06:09)
[2020-01-09 06:26] LABS: ESTIMATED GFR > 60
[2020-01-09 06:29] LABS: AGAP 11; BUN 21 mg/dL (8-22); CALCIUM 9.3 mg/dL (8.8-10.2); CHLORIDE 92 mmol/L (98-107); COSMO 295; CREATININE 0.9 mg/dL (0.5-0.9); GLUCOSE 154 mg/dL (70-104); POTASSIUM 3.6 mmol/L (3.5-5.1); SODIUM 145 mmol/L (136-145); TCO2 42 mmol/L (25-35)
[2020-01-09] MEDS: APRESOLINE IV PRN (06:33)
--- NOTE | 2020-01-09 07:32 | PROGRESS NOTE ---
DATE: 01/09/2020 SUBJECTIVE: The patient reports breathing better. She is definitely less tachypneic. Blood pressure has been in the range of 190's. No other issues noted as per nursing staff overnight. OBJECTIVE: Vital Signs: Temperature 98.1 degrees, heart rate 82, respiratory rate 14, and blood pressure 178/114. O2 saturation 93 percent on 6 L nasal cannula. General: This is a chronically ill-looking 59-year-old female lying in bed in no acute distress. Cardiovascular: S1, S2 heard. No murmurs, gallops, or rubs. Regular rate and rhythm. Respiratory: Decreased breath sounds globally with some wheezing noted in both pulmonary bases. Patient not using any accessory muscles or having work of breathing. Abdomen: Soft. Nontender to palpation. Bowel sounds present. No organomegaly. Extremities: No clubbing, cyanosis, or edema. Peripheral pulses present in both legs. Neurological: Patient is alert and oriented x3. Moves all 4 extremities. LABORATORY/DIAGNOSTIC DATA: 1. White cell count 10.95, hemoglobin 13.9, hematocrit 45.6, and platelets 269,000 with ABG that shows pH 7.3, with pCO2 78, PO2 was 63 on 6 L of oxygen by nasal cannula. BMP is unremarkable except glucose 154. 2. CT of the chest shows dense pulmonary emphysema with indeterminate abdominal nodule in the right medial upper lobe 1.2 cm so no evidence of air space consolidation, or other definite acute chest pathology by CT. ASSESSMENT AND PLAN: 1. Acute hypercarbic hypoxemic respiratory failure secondary to chronic obstructive pulmonary disease exacerbation. 2. Hypertension. 3. Hypothyroidism. At this point, we will continue with current antibiotic management. Patient definitely looks less tachypneic. CT of the chest as we mentioned above. Pulmonary is following this patient. We will follow recommendations. CO2 unfortunately continues to be very high. I think she is stable to go to a PVC unit. Blood pressure has been elevated so we will provide hydralazine p.r.n. If that continues to be high, then we will increase the dose of metoprolol. For hypothyroidism we will continue home doses of Synthroid. cc: Harrison Boles MD MTDD
[2020-01-09] MEDS: HYDROCHLOROTHIAZIDE PO SCH ×2 (08:16→21:19)
[2020-01-09] MEDS: LOPRESSOR PO SCH ×2 (08:16→21:19)
[2020-01-09] MEDS: NEURONTIN PO SCH ×3 (08:16→21:19)
[2020-01-09] MEDS: NICODERM PATCH TD SCH (08:17)
[2020-01-09] MEDS: LOVENOX SUBQ SCH (08:17)
[2020-01-09] MEDS ORDERED: METOPROLOL PO SCH (09:00)
[2020-01-09] MEDS ORDERED: HYDROCHLOROTHIAZIDE PO SCH (09:00)
[2020-01-09] MEDS ORDERED: [UNRECOGNIZED DRUG - OTHER] PO SCH (09:00)
[2020-01-09] MEDS: NORCO-5 PO PRN (13:09)
--- NOTE | 2020-01-09 18:39 | PROVIDER PROGRESS NOTE ---
Progress Note Dr. Burk Progress Note/Pulmonary and or critical care Subjective: The patient is lying in bed on NC 6L. She states she is feeling better. She reports she went to bathroom with SOB. Patients youngest sister at the bedside. Input was appreciated from Dr. Mercado and other teams on the case. Objective: Vital Signs: T 98.2 (no fever in last 24 hours), [place] 78, RR 19, BP 155/83 and SaO2 95% on NC 6L. Physical Examination: General: Lying in bed. No acute distress noted. HEENT: Normocephalic. Trachea midline. Mucosa pink and moist. PERRL. Chest: Even and unlabored. No increased work of breathing or accessory muscle using noted. Symmetrical excursion. Good air entry with mild inspiratory crackles bibasilarly, but no wheezing noted. CVS: S1 and S2 appreciated. Abdomen: Soft. Non-distended. Non-tender. Normoactive bowel sounds in all 4 quadrants. Extremities: No edema. No cyanosis. No clubbing. Neuro: A/O x3. Speech fluent. Follow commands. Labs and Radiology: Laboratory Results 01/09/20 01/09/20 01/09/20 04:50 04:50 05:23 WBC 10.85 H RBC 4.66 Hgb 13.9 Hct 45.6 MCV 97.9 MCH 29.8 MCHC 30.5 L RDW Std Deviation 12.2 Plt Count 269 MPV 10.8 H Immature Gran % (Auto) 0.3 Neut % (Auto) 91.1 H Lymph % (Auto) 5.6 L [place] % (Auto) 2.5 Eos % (Auto) 0.4 Baso % (Auto) 0.1 Immature Gran # (Auto) 0.03 Neut # (Auto) 9.89 H Lymph # (Auto) 0.61 L [place] # (Auto) 0.27 Eos # (Auto) 0.04 Baso # (Auto) 0.01 Specimen Type ARTERIAL Sample Site R RADIAL pH 7.38 pCO2 78 H* pO2 60 HCO3 37.5 H Base Excess 16.4 H Oxyhemoglobin 91.6 L ABG O2 Sat (Calculated) 19.3 ABG O2 Saturation 93.6 L ABG Carboxyhemoglobin 1.10 ABG Methemoglobin 1.0 Oli Test YES A-a O2 Difference 128.0 Total Hemoglobin 15.0 Lactate 2.60 H Liter Flow 5.0 Blood Gas Modality [place] FiO2 % 40.0 Sodium 145 Potassium 3.6 Chloride 92 L Carbon Dioxide 42 H Anion Gap 11 BUN 21 Creatinine 0.9 Estimated GFR/1.73 m2 > 60 BUN/Creatinine Ratio 23 Glucose 154 H Calculated Osmolality 295 Calcium 9.3 Assessment: Acute on chronic hypoxemic respiratory failure. Improving. Acute, likely on chronic hypercapnic respiratory failure. Respiratory acidosis is chronic and completely compensated with metabolic alkalosis. COPD exacerbation. Possible lingular pneumonia. CT thorax with contrast this morning shows advanced pulmonary emphysema, indeterminate dominant nodule in the medial right upper lobe, a couple of subcentimeter noncalcified nodules in the left lung, but no evidence of airspace consolidation or other definite acute chest pathology. Ongoing tobacco use. Possible ALVERTO with insomnia, interrupted sleep and witnessed snoring. Plan: Supplemental oxygen as needed. BiPAP at bedtime and as needed. We titrated supplemental oxygen and BiPAP setting to patients needs per clinical protocols. We will keep monitoring patients response closely. Antibiotic Levaquin. Day 4. IV Solu-Medrol. Tapering down. GI and DVT prophylaxis. Smoking cessation education Recommend outpatient sleep study. We start Mucomyst and incentive spirometer. We encourage patient to use incentive spirometer routinely. Evaluation time in minutes: 32 minutes
[2020-01-09] MEDS: MUCOMYST 20% INH SCH (20:12)
[2020-01-09] MEDS: DESYREL PO SCH (21:19)
[2020-01-10] MEDS: DUONEB (A & A) INH SCH ×6 (03:37→23:30)
[2020-01-10] MEDS: LEVAQUIN 750 MG/D5W 750 MG/150 ML IVPB IV SCH ×2 (04:44→05:35)
[2020-01-10] MEDS: NORCO-5 PO PRN (04:44)
[2020-01-10] MEDS: PRILOSEC PO SCH ×2 (04:45→06:05)
[2020-01-10] MEDS: SYNTHROID PO SCH ×2 (04:45→06:06)
[2020-01-10 04:53] LABS: ALLEN TEST YES; BE 21.9 mmoll (-3.0-3.0); BLOOD TYPE ARTERIAL; METHB 0.9 % (0.0-1.5); O2(CT) 20.7 mL/dL (15.0-23.0); O2HB 96.8 % (95.0-99.0); PO2(98.6) 128 mmHg (60-100); SAMPLE BLOOD; SAO2 98.9 % (95.0-100.0); THB 15.1 g/dL (11.5-17.4); pH(98.6) 7.36 (7.35-7.45)
[2020-01-10 05:06] LABS: MODALITY CANNULA; PCO2(98.6) 95 mmHg (35-45)
[2020-01-10] MEDS: NICODERM PATCH TD SCH (05:36)
[2020-01-10 06:42] LABS: HEMATOCRIT 46.1 % (37.0-47.0); HEMOGLOBIN 14.1 g/dL (12.0-16.0); IMM GRAN# 0.03 X1000 (0.0-0.04); IMM GRAN% 0.4 % (0.0-0.5); LYMPH% 6.5 % (20.5-51.1); MCH 30.2 PG (27-31); MCHC 30.6 g/dL (33-37); MCV 98.7 FL (81-99); MONO# 0.35 X1000 (0.11-0.59); MONO% 4.5 % (1.7-9.3); NEUT# 6.83 X1000 (1.4-6.5); NEUT% 88.6 % (42.2-75.2); PLT 228 X1000 (130-400); RBC 4.67 XMIL (4.2-5.4); WBC 7.71 X1000 (4.8-10.8)
[2020-01-10 07:16] LABS: ESTIMATED GFR > 60
[2020-01-10 07:19] LABS: AGAP 7; BUN 23 mg/dL (8-22); CALCIUM 9.8 mg/dL (8.8-10.2); CHLORIDE 88 mmol/L (98-107); COSMO 291; CREATININE 0.9 mg/dL (0.5-0.9); GLUCOSE 139 mg/dL (70-104); LYMPHS 4 % (21-51); MONO 2 % (1-9); POTASSIUM 3.7 mmol/L (3.5-5.1); SEGS 88 % (42-75); SODIUM 143 mmol/L (136-145); TCO2 48 mmol/L (25-35)
[2020-01-10] MEDS: MUCOMYST 20% INH SCH ×2 (08:41→20:22)
[2020-01-10] MEDS: SOLU-MEDROL IV SCH ×2 (08:45→20:39)
[2020-01-10] MEDS: LOVENOX SUBQ SCH (08:46)
[2020-01-10] MEDS: LOPRESSOR PO SCH ×2 (08:46→20:39)
[2020-01-10] MEDS: HYDROCHLOROTHIAZIDE PO SCH ×2 (08:46→20:39)
[2020-01-10] MEDS: NEURONTIN PO SCH ×3 (08:46→20:39)
[2020-01-10] MEDS ORDERED: NARCAN IV ONE (09:06)
[2020-01-10 12:29] LABS: ALLEN TEST YES; BE 23.2 mmoll (-3.0-3.0); BLOOD TYPE ARTERIAL; HCO3-(ACT) 42.9 mmoll (20.0-26.0); METHB 1.3 % (0.0-1.5); O2(CT) 20.1 mL/dL (15.0-23.0); O2HB 93.3 % (95.0-99.0); PO2(98.6) 69 mmHg (60-100); SAMPLE BLOOD; SAO2 95.7 % (95.0-100.0); THB 15.3 g/dL (11.5-17.4); pH(98.6) 7.46 (7.35-7.45)
[2020-01-10 12:31] LABS: MODALITY BI PAP; PCO2(98.6) 74 mmHg (35-45)
[2020-01-10] MEDS ORDERED: NORVASC PO SCH (16:00)
--- NOTE | 2020-01-10 17:12 | PROGRESS NOTE ---
DATE: 01/10/2020 INTERVAL HISTORY: The patient clinically appears much improved. Dyspnea much better. Able to get up and walk around the room without significant difficulty. Remains afebrile. No acute events overnight. REVIEW OF SYSTEMS: Twelve point review of systems negative except as per interval history. LABS: WBC 7.7, hemoglobin 14.1, hematocrit 46.1, platelets 228,000. Initial ABG with pH 7.36, pCO2 95. Repeat ABG with pH 7.46, pCO2 74, PO2 69 on 35% oxygen via BiPAP. Sodium 143, potassium 3.7, bicarb 23, creatinine 0.9 Vitals: T-max 98.4 degrees, pulse 83, respirations 14, bloo O2 saturation 91% on 4 L by nasal cannula. PHYSICAL EXAMINATION: General: No acute distress. Vitals: As above. HEENT: Normocephalic, atraumatic. Moist mucous membranes. No cervical adenopathy. Cardiovascular: Regular rate and rhythm. No murmurs noted. Pulmonary: Significantly decreased breath sounds throughout. No wheezing noted at the time my exam. No accessory muscle use or increased work of breathing. Abdomen: Soft, nontender, nondistended. Bowel sounds positive. Extremities: Peripheral pulses intact. No clubbing, cyanosis, or edema. Neurologic: Cranial nerves grossly intact. No focal deficits identified. Psychiatric: Normal mood and affect. Awake, alert, oriented x3. ASSESSMENT AND PLAN: 1. Acute on likely chronic hypercapnic hypoxemic respiratory failure. Chronic obstructive pulmonary disease exacerbation. ABG this morning showing improving oxygenation but worse CO2 retention. The pH still okay so likely not that far off from her baseline. She was put on BiPAP and repeat ABG with improved CO2. We will continue to wean oxygen as tolerated. Continue nebulizers and steroids and monitor. 2. Hypothyroidism continue home Synthroid. 3. Hypertension, fairly consistent elevation in blood pressure. Currently on home hydrochlorothiazide and metoprolol. We will add some low-dose Norvasc and monitor. 4. Lung nodules x2, both fairly small and with no immediately alarming features, but will need repeat CT in 3 months to ensure stability. Discussed with the patient, so she would be aware. 5. Of note, patient is not on oxygen continuously but is on 3 L of oxygen at night while sleeping. [facility]
--- NOTE | 2020-01-10 17:29 | PROVIDER PROGRESS NOTE ---
Progress Note Dr. Burk Progress Note/Pulmonary and or critical care Subjective: The patient is lying in bed on BiPAP mask on. She apparently has not used BiPAP at night in last two days. Her pCO2 up to 95 this morning. RT put her on BiPAP this morning after breakfast. Input was appreciated from Dr. Lackey and other teams on the case. Objective: Vital Signs: T 97.9 (no fever in last 24 hours), [place] 80, RR 16, BP 170/105 and SaO2 95% on NC 4L. Physical Examination: General: Lying in bed. Some anxiety, but no acute respiratory or cardiac distress noted. HEENT: Normocephalic. Trachea midline. Mucosa pink and moist. PERRL. Chest: Even and unlabored. Symmetrical excursion. Decreased air entry bilaterally posteriorly, but no wheezing noted. CVS: S1 and S2 appreciated. Abdomen: Soft. Non-distended. Non-tender. Normoactive bowel sounds in all 4 quadrants. Extremities: No edema. No cyanosis. No clubbing. Neuro: A/O x3. Speech fluent. Follow commands. Labs and Radiology: Laboratory Results 01/10/20 01/10/20 01/10/20 04:43 05:58 05:58 WBC 7.71 RBC 4.67 Hgb 14.1 Hct 46.1 MCV 98.7 MCH 30.2 MCHC 30.6 L RDW Std Deviation 12.0 Plt Count 228 MPV 10.0 Immature Gran % (Auto) 0.4 Neut % (Auto) 88.6 H Lymph % (Auto) 6.5 L [place] % (Auto) 4.5 Eos % (Auto) 0.0 Baso % (Auto) 0.0 Immature Gran # (Auto) 0.03 Neut # (Auto) 6.83 H Lymph # (Auto) 0.50 L [place] # (Auto) 0.35 Eos # (Auto) 0.00 Baso # (Auto) 0.00 Segmented Neutrophils 88 H Lymphocytes 4 L Monocytes 2 Atypical Lymphocytes 6.0 Specimen Type ARTERIAL Sample Site R RADIAL pH 7.36 pCO2 95 H* pO2 128 H HCO3 42.0 H Base Excess 21.9 H Oxyhemoglobin 96.8 ABG O2 Sat (Calculated) 20.7 ABG O2 Saturation 98.9 ABG Carboxyhemoglobin 1.10 ABG Methemoglobin 0.9 Oli Test YES A-a O2 Difference 38.0 Total Hemoglobin 15.1 Lactate 1.60 Liter Flow 5.0 Blood Gas Modality [place] FiO2 % 40.0 Inspiratory BiPAP Expiratory BiPAP Sodium 143 Potassium 3.7 Chloride 88 L Carbon Dioxide 48 H Anion Gap 7 BUN 23 H Creatinine 0.9 Estimated GFR/1.73 m2 > 60 BUN/Creatinine Ratio 26 Glucose 139 H Calculated Osmolality 291 Calcium 9.8 01/10/20 12:20 WBC RBC Hgb Hct MCV MCH MCHC RDW Std Deviation Plt Count MPV Immature Gran % (Auto) Neut % (Auto) Lymph % (Auto) [place] % (Auto) Eos % (Auto) Baso % (Auto) Immature Gran # (Auto) Neut # (Auto) Lymph # (Auto) [place] # (Auto) Eos # (Auto) Baso # (Auto) Segmented Neutrophils Lymphocytes Monocytes Atypical Lymphocytes Specimen Type ARTERIAL Sample Site L RADIAL pH 7.46 H pCO2 74 H* pO2 69 HCO3 42.9 H Base Excess 23.2 H Oxyhemoglobin 93.3 L ABG O2 Sat (Calculated) 20.1 ABG O2 Saturation 95.7 ABG Carboxyhemoglobin 1.20 ABG Methemoglobin 1.3 Oli Test YES A-a O2 Difference 88.0 Total Hemoglobin 15.3 Lactate 1.00 Liter Flow Blood Gas Modality BI PAP FiO2 % 35.0 Inspiratory BiPAP 18.0 Expiratory BiPAP 8.0 Sodium Potassium Chloride Carbon Dioxide Anion Gap BUN Creatinine Estimated GFR/1.73 m2 BUN/Creatinine Ratio Glucose Calculated Osmolality Calcium Assessment: Acute on chronic hypoxemic respiratory failure. Improving. Acute, likely on chronic hypercapnic respiratory failure. Respiratory acidosis is chronic and completely compensated with metabolic alkalosis. Worsening. Patient apparently refused BiPAP for 2 days. COPD exacerbation. Possible lingular pneumonia. CT thorax with contrast this morning shows advanced pulmonary emphysema, indeterminate dominant nodule in the medial right upper lobe, a couple of subcentimeter noncalcified nodules in the left lung, but no evidence of airspace consolidation or other definite acute chest pathology. CXR today shows improved right pleural effusion. Ongoing tobacco use. Possible ALVERTO with insomnia, interrupted sleep and witnessed snoring. Plan: Supplemental oxygen as needed. BiPAP at bedtime and as needed. We titrated supplemental oxygen and BiPAP setting to patients needs per clinical protocols. We will keep monitoring patients response closely. We will recheck ABG after BiPAP therapy for at least 1 hour. If indicated, we will put patient back on nasal cannula during the day time. We stress the importance of BiPAP at bedtime. Antibiotic Levaquin. Day 5. IV Solu-Medrol. Mucomyst. Bronchodilators. GI and DVT prophylaxis. Smoking cessation education Recommend outpatient sleep study. We encourage patient to use incentive spirometer routinely. Evaluation time in minutes: 33 minutes
[2020-01-10] MEDS: APRESOLINE IV PRN (18:27)
[2020-01-10] MEDS: DESYREL PO SCH (20:39)
[2020-01-11] MEDS: DUONEB (A & A) INH SCH ×6 (03:50→23:21)
[2020-01-11 04:08] LABS: ALLEN TEST YES; BE 21.4 mmoll (-3.0-3.0); BLOOD TYPE ARTERIAL; HCO3-(ACT) 41.5 mmoll (20.0-26.0); METHB 0.5 % (0.0-1.5); O2(CT) 18.2 mL/dL (15.0-23.0); O2HB 93.8 % (95.0-99.0); PO2(98.6) 69 mmHg (60-100); SAMPLE BLOOD; SAO2 95.7 % (95.0-100.0); THB 13.8 g/dL (11.5-17.4); pH(98.6) 7.45 (7.35-7.45)
[2020-01-11 04:10] LABS: MODALITY BI PAP; PCO2(98.6) 72 mmHg (35-45)
[2020-01-11] MEDS: LEVAQUIN 750 MG/D5W 750 MG/150 ML IVPB IV SCH (06:06)
[2020-01-11] MEDS: SYNTHROID PO SCH (06:07)
[2020-01-11] MEDS: PRILOSEC PO SCH (06:07)
[2020-01-11 07:03] LABS: BASO# 0.01 X1000 (0.0-0.2); BASO% 0.1 % (0.0-0.8); HEMOGLOBIN 14.6 g/dL (12.0-16.0); IMM GRAN# 0.04 X1000 (0.0-0.04); IMM GRAN% 0.6 % (0.0-0.5); LYMPH# 0.61 X1000 (1.2-3.4); LYMPH% 8.5 % (20.5-51.1); MCH 30.4 PG (27-31); MCHC 31.1 g/dL (33-37); MCV 97.9 FL (81-99); MONO# 0.49 X1000 (0.11-0.59); MONO% 6.8 % (1.7-9.3); MPV 10.1 FL (7.4-10.4); NEUT# 6.05 X1000 (1.4-6.5); PLT 236 X1000 (130-400); RDW 12.2 % (11.5-14.5)
[2020-01-11 07:31] LABS: ESTIMATED GFR > 60
[2020-01-11 07:37] LABS: AGAP 11; BUN 28 mg/dL (8-22); CALCIUM 9.4 mg/dL (8.8-10.2); CHLORIDE 92 mmol/L (98-107); COSMO 300; CREATININE 0.8 mg/dL (0.5-0.9); GLUCOSE 104 mg/dL (70-104); POTASSIUM 3.4 mmol/L (3.5-5.1); SODIUM 148 mmol/L (136-145); TCO2 45 mmol/L (25-35)
[2020-01-11] MEDS ORDERED: POTASSIUM CHLORIDE 20 MEQ/SWI 20 MEQ/100 ML IVPB IV SCH (08:00)
[2020-01-11] MEDS: NEURONTIN PO SCH ×3 (08:13→22:06)
[2020-01-11] MEDS: LOPRESSOR PO SCH ×2 (08:13→22:05)
[2020-01-11] MEDS: HYDROCHLOROTHIAZIDE PO SCH ×2 (08:13→22:19)
[2020-01-11] MEDS: LOVENOX SUBQ SCH (08:14)
[2020-01-11] MEDS: NICODERM PATCH TD SCH (08:14)
[2020-01-11] MEDS: SOLU-MEDROL IV SCH ×2 (08:14→22:06)
[2020-01-11] MEDS: MUCOMYST 20% INH SCH ×2 (08:25→19:43)
[2020-01-11] MEDS ORDERED: KLOR-CON POWDER PACKET PO ONE (09:44)
[2020-01-11] MEDS: TORADOL IV PRN ×2 (13:06→22:08)
--- NOTE | 2020-01-11 15:30 | PROGRESS NOTE ---
DATE: 01/11/2020 INTERVAL HISTORY: The patient appears to be doing well. Dyspnea and oxygen requirements improving significantly. No further wheezing. No acute events overnight. No new complaints. REVIEW OF SYSTEMS: Twelve point review of systems negative except as per interval history. LABS: WBC 7.2, hemoglobin 14.6, hematocrit 47.0, platelets 236,000. ABG with pH 7.45, pCO2 72, PO2 69 on 35% oxygen. Sodium 148, potassium 3.4, BUN 20, creatinine 0.8. VITAL SIGNS: Temperature maximum 98.3 degrees, pulse 85, respirations 17, blood pressure 122/75, O2 saturation 94% on 3 L by nasal cannula. PHYSICAL EXAMINATION: General: No acute distress. Vital Signs: As above. HEENT: Normocephalic, atraumatic. Moist mucous membranes. Neck: No cervical adenopathy. Cardiovascular: Regular rate and rhythm. No murmurs noted. Pulmonary: Still with some pretty significantly decreased breath sounds throughout, slightly better than previous. I still do not note any wheezing. No accessory muscle use or increased work of breathing. Appears to become dyspneic less rapidly than before. Abdomen: Soft, nontender, nondistended. Bowel sounds positive. Extremities: Peripheral pulses intact. No clubbing, cyanosis, or edema. Neurologic: Cranial nerves grossly intact. No focal deficits identified. Psychiatric: Normal mood and affect. Awake, alert, and oriented x3. ASSESSMENT AND PLAN: 1. Acute on likely chronic hypercapnic and hypoxemic respiratory failure. Chronic obstructive pulmonary disease exacerbation. Arterial blood gases showing roughly stable CO2 retention and slowly improving oxygenation. pH okay. CO2 likely near baseline. Continue to wean oxygen as tolerated. Continue nebulizers and steroids. If oxygen continues to improve then may be able to discharge tomorrow. The patient does have oxygen at home but wears it only at night. 2. Hypothyroidism. Continue home Synthroid. 3. Hypertension. The patient on home hydrochlorothiazide and metoprolol, and planned on adding Norvasc yesterday but blood pressure this morning was a little too well controlled with one blood pressure as low as 104/59, so Norvasc was discontinued and will continue on just her home blood pressure medications for now. 4. Lung nodule x2. Both fairly small with no alarming features. Will need a repeat CT scan in three months just to ensure stability. This was discussed with the patient. 5. Hypokalemia. Will replete and monitor.
--- NOTE | 2020-01-11 17:42 | PROVIDER PROGRESS NOTE ---
Progress Note Dr. Burk Progress Note/Pulmonary and or critical care Subjective: The patient is lying in bed. BiPAP use at night. Input was appreciated from Dr. Lackey and other teams on the case. Objective: Vital Signs: T 97.9 (no fever in last 24 hours), UT 78, RR 20, BP 108/55 and SaO2 95% on NC 3L. Physical Examination: General: Lying in bed. Some anxiety, but no acute acute distress. HEENT: Normocephalic. Trachea midline. Mucosa pink, PERRLA Chest: Even and unlabored. Symmetrical excursion. Decreased air entry bilaterally posteriorly, but no wheezing noted. CVS: S1 and S2 appreciated. Abdomen: Soft. Non-distended. Non-tender. Normoactive bowel sounds in all 4 quadrants. Extremities: No edema. No cyanosis. No clubbing. Neuro: A/O x3. Speech fluent. Follow commands. Dr. Burk did assessment and management. MARIPOSA Segura did scribing only. Labs and Radiology: Laboratory Results 01/11/20 01/11/20 01/11/20 03:57 06:17 06:17 WBC 7.20 RBC 4.80 Hgb 14.6 Hct 47.0 MCV 97.9 MCH 30.4 MCHC 31.1 L RDW Std Deviation 12.2 Plt Count 236 MPV 10.1 Immature Gran % (Auto) 0.6 H Neut % (Auto) 84.0 H Lymph % (Auto) 8.5 L [place] % (Auto) 6.8 Eos % (Auto) 0.0 Baso % (Auto) 0.1 Immature Gran # (Auto) 0.04 Neut # (Auto) 6.05 Lymph # (Auto) 0.61 L [place] # (Auto) 0.49 Eos # (Auto) 0.00 Baso # (Auto) 0.01 Specimen Type ARTERIAL Sample Site R RADIAL pH 7.45 pCO2 72 H* pO2 69 HCO3 41.5 H Base Excess 21.4 H Oxyhemoglobin 93.8 L ABG O2 Sat (Calculated) 18.2 ABG O2 Saturation 95.7 ABG Carboxyhemoglobin 1.50 ABG Methemoglobin 0.5 Oli Test YES A-a O2 Difference 91.0 Total Hemoglobin 13.8 Lactate 1.70 Blood Gas Modality BI PAP Vent Mode BIPAP FiO2 % 35.0 Inspiratory BiPAP 18.0 Expiratory BiPAP 8.0 Sodium 148 H Potassium 3.4 L Chloride 92 L Carbon Dioxide 45 H Anion Gap 11 BUN 28 H Creatinine 0.8 Estimated GFR/1.73 m2 > 60 BUN/Creatinine Ratio 35 Glucose 104 Calculated Osmolality 300 Calcium 9.4 Assessment: Acute on chronic hypoxemic respiratory failure. Improving. Acute, likely on chronic hypercapnic respiratory failure. Respiratory acidosis is chronic and completely compensated with metabolic alkalosis. COPD exacerbation. Possible lingular pneumonia. CT thorax with contrast this morning shows advanced pulmonary emphysema, indeterminate dominant nodule in the medial right upper l obe, a couple of subcentimeter noncalcified nodules in the left lung, but no evidence of airspace consolidation or other definite acute chest pathology. Improved right pleural effusion. Ongoing tobacco use. Possible ALVERTO with insomnia, interrupted sleep and witnessed snoring. Plan: Supplemental oxygen as needed. BiPAP at bedtime and as needed. We titrated supplemental oxygen and BiPAP setting to patients needs per clinical protocols. We will keep monitoring patients response closely. We stress the importance of BiPAP at bedtime. Antibiotic Levaquin. IV Solu-Medrol. Mucomyst. Bronchodilators. GI and DVT prophylaxis. Smoking cessation education Recommend outpatient sleep study. We encourage patient to use incentive spirometer routinely. Evaluation time in minutes: 32 minutes
[2020-01-11] MEDS: DESYREL PO SCH (22:05)
[2020-01-12] MEDS: DUONEB (A & A) INH SCH ×4 (03:01→15:32)
[2020-01-12 04:42] LABS: ALLEN TEST YES; BLOOD TYPE ARTERIAL; HCO3-(ACT) 41.2 mmoll (20.0-26.0); O2(CT) 17.4 mL/dL (15.0-23.0); O2HB 92.5 % (95.0-99.0); PO2(98.6) 68 mmHg (60-100); SAMPLE BLOOD; THB 13.4 g/dL (11.5-17.4); pH(98.6) 7.43 (7.35-7.45)
[2020-01-12 04:45] LABS: MODALITY CANNULA; PCO2(98.6) 75 mmHg (35-45)
[2020-01-12] MEDS: PRILOSEC PO SCH (06:04)
[2020-01-12] MEDS: LEVAQUIN 750 MG/D5W 750 MG/150 ML IVPB IV SCH (06:04)
[2020-01-12] MEDS: SYNTHROID PO SCH (06:04)
[2020-01-12] MEDS: TORADOL IV PRN ×2 (06:05→14:15)
[2020-01-12 07:00] LABS: EOS# 0.01 X1000 (0.0-0.7); EOS% 0.1 % (0.0-10.0); HEMATOCRIT 46.7 % (37.0-47.0); HEMOGLOBIN 14.2 g/dL (12.0-16.0); IMM GRAN# 0.07 X1000 (0.0-0.04); IMM GRAN% 0.9 % (0.0-0.5); LYMPH# 0.38 X1000 (1.2-3.4); LYMPH% 4.7 % (20.5-51.1); MCH 30.1 PG (27-31); MCHC 30.4 g/dL (33-37); MCV 99.2 FL (81-99); MONO# 0.13 X1000 (0.11-0.59); MONO% 1.6 % (1.7-9.3); MPV 10.1 FL (7.4-10.4); NEUT# 7.58 X1000 (1.4-6.5); NEUT% 92.7 % (42.2-75.2); PLT 225 X1000 (130-400); RBC 4.71 XMIL (4.2-5.4); RDW 12.2 % (11.5-14.5); WBC 8.17 X1000 (4.8-10.8)
[2020-01-12 07:39] LABS: CALCIUM 9.5 mg/dL (8.8-10.2); CREATININE 1.1 mg/dL (0.5-0.9); POTASSIUM 5.1 mmol/L (3.5-5.1)
[2020-01-12] MEDS: LOPRESSOR PO SCH ×2 (07:55→14:17)
[2020-01-12] MEDS: SOLU-MEDROL IV SCH ×2 (07:55→14:15)
[2020-01-12] MEDS: NICODERM PATCH TD SCH ×2 (07:55→14:15)
[2020-01-12] MEDS: HYDROCHLOROTHIAZIDE PO SCH ×2 (07:55→14:17)
[2020-01-12] MEDS: NEURONTIN PO SCH ×2 (07:56→14:15)
[2020-01-12] MEDS: LOVENOX SUBQ SCH ×2 (07:56→14:15)
[2020-01-12] MEDS: MUCOMYST 20% INH SCH (08:39)
[2020-01-12 13:00] VITALS: BP 121/70
--- NOTE | 2020-01-12 19:10 | DISCHARGE SUMMARY ---
ADMISSION DATE: 01/06/2020 DISCHARGE DATE: 01/12/2020 PRIMARY CARE PHYSICIAN: Dr. Iesha Musa. ADMISSION DIAGNOSES: 1. Lingular pneumonia. 2. Chronic obstructive pulmonary disease exacerbation. 3. Acute hypercarbic hypoxic respiratory failure. 4. Leukocytosis. 5. Hypokalemia. 6. Hypothyroid. 7. Hypertension. DISCHARGE DIAGNOSES: 1. An acute on likely chronic hypercapnic and hypoxic respiratory failure with an acute chronic obstructive pulmonary disease exacerbation improved. 2. Hypothyroidism. 3. Hypertension. 4. Lung nodule x2 small with no alarming features. 5. Hypokalemia resolved. SUMMARY OF FINDINGS: This is a 59-year-old female who presented to the ER with shortness of breath. States she had increased symptoms over the last 3 to 4 weeks. Had to sit upright to breathe. She continued to smoke a pack a day of cigarettes. Denied any fevers, chills, productive cough. Was transferred from [facility] to [facility] ICU. Placed on BiPAP initially, gentle hydration, antibiotic coverage. Discussed smoking cessation with the patient as well as the ordered nicotine patch. Chest CT was done on 01/08/2020 that showed advanced pulmonary emphysema, indeterminate dominant nodule in the medial right upper lobe, a noncalcified nodule in the left lung. No evidence of airspace consolidation or other definite acute chest pathology by CT. We did consult Pulmonology. She improved, was taken off the BiPAP and was placed on O2 via nasal cannula now saturating 96 to 98 percent and felt that she could safely be discharged home. DISCHARGE MEDICATIONS: Include DuoNeb q.4 hours p.r.n., benzonatate 100 mg p.o. t.i.d. p.r.n., gabapentin 400 mg p.o. t.i.d., [place] 5 one p.o. q.8 hours p.r.n., levothyroxine 25 mcg p.o. daily, Medrol Dosepak take as directed, metoprolol/hydrochlorothiazide 50/25 one p.o. b.i.d., Spiriva Respimat 1 puff inhalation as directed. FOLLOWUP: She will follow up with her primary care physician in the next 1 to 2 weeks and call their office for an appointment. TIME SPENT: 35 minutes. Dictated by MARIPOSA Caceres for MD Javi Douglas#: [id number] cc: MD Vinh Brown MD
== END 2020-01-12 16:20 | disposition home or self-care (01) | DRG 871 ==
LOC: P.ED 03:32 → SUATTDRO 04:49 → EDIPHOLD 04:49 → ICU 07:53 → 2N 01-09 10:43 → 4N 01-11 18:33
PROVIDERS: ATTEND Internal Medicine